=== PATIENT | female | born 1960 | race Native Hawaiian/Other Pacific Islander ===

== ENCOUNTER 2019-07-18 13:48 | Outpatient (CLI) | payer BC | END 2019-07-18 23:32 | disposition home or self-care (01) | LOC: MAMMO 13:48 | DX: Z12.31 Encounter for screening mammogram for malignant neoplasm of breast (principal) ==

== ENCOUNTER 2022-05-14 11:12 | Outpatient (CLI) | payer BC | END 2022-05-14 19:09 | disposition home or self-care (01) | LOC: RAD 11:12 | PROVIDERS: ATTEND Internal Medicine | DX: M25.512 Pain in left shoulder (principal); M54.2 Cervicalgia ==

== ENCOUNTER 2022-09-15 08:20 | Outpatient (CLI) | payer BC | END 2022-09-15 20:12 | disposition home or self-care (01) | LOC: MRI 08:20 | PROVIDERS: ATTEND Internal Medicine | DX: M25.512 Pain in left shoulder (principal) ==